=== PATIENT | male | born 1950 ===

== ENCOUNTER 2020-12-30 10:40 | Outpatient (CLI) | payer MEDICARE ==
[~2020-12-30 10:40] MED LIST: Iopamidol-370 76% 500 ML 1 ML ONE
[2020-12-30 11:06] LABS: Estimated GFR-MDRD - POC Greater than 90
== END 2020-12-30 10:41 | disposition home or self-care (01) ==
LOC: BICCT 10:40
PROVIDERS: ATTEND Internal Medicine Critical Care Medicine
DX: J90 Pleural effusion, not elsewhere classified (principal); R91.8 Other nonspecific abnormal finding of lung field; J98.11 Atelectasis; K70.30 Alcoholic cirrhosis of liver without ascites
CPT/HCPCS: 36415; 71260; 80053; 82565; 85025; 85610; 85730; Q9967